=== PATIENT | female | born 1995 | race Caucasian/White ===

== ENCOUNTER 2022-06-23 11:26 | Inpatient (IN) ==
[2022-06-23] MEDS ORDERED: Azithromycin 500 MG in 0.9 % Sodium Chloride 250 ML IVPB PRN (11:43)
[2022-06-23] MEDS ORDERED: Famotidine 20 MG/2 ML VIAL IVP PRN (11:43)
[2022-06-23] MEDS ORDERED: Lidocaine 1% 20 ML MDV INFILT PRN (11:43)
[2022-06-23] MEDS ORDERED: *HR* Nalbuphine 10 MG/ML AMPUL IV PRN (11:43)
[2022-06-23] MEDS ORDERED: miSOPROStoL 25 MCG TABLET PO PRN (11:43)
[2022-06-23] MEDS ORDERED: Penicillin G Potassium 5,000,000 UNIT in 0.9 % Sodium Chloride Mini Bag 100 ML IVPB ONE (11:43)
[2022-06-23] MEDS ORDERED: Naloxone 0.4 MG/ML INJ IVP PRN ×2 (11:43→13:39)
[2022-06-23] MEDS ORDERED: Ondansetron 4 MG/2 ML VIAL IVP PRN ×2 (11:43→13:39)
[2022-06-23] MEDS ORDERED: Metoclopramide 10 MG/2 ML VIAL IVP PRN (11:43)
[2022-06-23] MEDS ORDERED: Ringers Solution, Lactated 1,000 ML IVC SCH (11:45)
[2022-06-23] MEDS ORDERED: Penicillin G Potassium 2,500,000 UNIT/105 ML MLS IVPB SCH (11:45)
[2022-06-23] MEDS ORDERED: D5% in 0.45% NACL 1,000 ML IVC SCH (12:00)
[2022-06-23 13:04] LABS: Basophils % 0.5 %; Eosinophils % 0.2 %; Hemoglobin 11.5 g/dL (11.5-15.4); Immature Granulocytes % 0.5 % (0-4); Lymphocytes # 0.9 K/mcL (0.6-4.6); Lymphocytes % 21.9 %; Mean Corpuscular HGB Conc 32.9 g/dL (31.6-35.5); Mean Corpuscular Hemoglobin 29.9 pg (28.0-33.3); Mean Corpuscular Volume 90.9 fL (83.0-100.0); Mean Platelet Volume 11.2 fL (9.4-12.4); Monocytes # 0.6 K/mcL (0.0-1.3); Monocytes % 13.8 %; Neutrophils # 2.7 K/mcL (1.6-8.9); Platelet Count 197 K/mcL (140-400); Red Blood Count 3.85 M/mcL (3.82-4.97); Red Cell Distribution Width 12.6 % (11.5-14.5); Segmented Neutrophils % 63.1 %; White Blood Count 4.3 K/mcL (4.3-11.1)
[2022-06-23] MEDS ORDERED: *HR* FentaNYL (PF) 100 MCG/2 ML VIAL EP ONE (13:39)
[2022-06-23] MEDS ORDERED: EPHEDrine 50 MG/ML VIAL IVP PRN (13:39)
[2022-06-23] MEDS ORDERED: Ropivacaine/PF 0.2% 20 ML VIAL EP ONE (13:39)
[2022-06-23 13:44] LABS: Amphetamine Screen,Urine Negative ng/mL (Cutoff=1000); Barbiturate Screen,Urine Negative ng/mL (Cutoff=200); Benzodiazepines Screen,Urine Negative ng/mL (Cutoff=200); Cannabinoid Screen,Urine Negative ng/mL (Cutoff = 50); Cocaine Screen,Urine Negative ng/mL (Cutoff= 300); Opiate Screen,Urine Negative ng/mL (Cutoff=300); Phencyclidine Screen,Urine Negative ng/mL (Cutoff=25)
[2022-06-23] MEDS ORDERED: Epidural Premix (fent/bupiv) 110 ML EP SCH (13:45)
[2022-06-23] MEDS ORDERED: miSOPROStoL 25 MCG TABLET VG PRN (13:59)
[2022-06-23] MEDS: Penicillin G Potassium 2,500,000 UNIT/105 ML MLS IVPB SCH ×2 (16:45→20:53)
[2022-06-23] MEDS ORDERED: miSOPROStoL 25 MCG TABLET VG SCH (22:15)
[2022-06-24] MEDS ORDERED: miSOPROStoL 25 MCG TABLET VG SCH
[2022-06-24] MEDS: Penicillin G Potassium 2,500,000 UNIT/105 ML MLS IVPB SCH (02:11)
[2022-06-24] MEDS ORDERED: *HR* FentaNYL (PF) 100 MCG/2 ML VIAL ONE (03:09)
[2022-06-24] MEDS ORDERED: Oxytocin 30 UNIT/503 ML BAG IVC ONE (04:58)
[2022-06-24] MEDS ORDERED: miSOPROStoL 100 MCG TABLET RC ONE (05:16)
[2022-06-24] MEDS ORDERED: *HR* Oxytocin 10 UNIT/ML VIAL IVC ONE (05:16)
[2022-06-24] MEDS ORDERED: Benzocaine/Menthol 56 GM AEROSOL SPRAY TP PRN (06:17)
[2022-06-24] MEDS ORDERED: Lanolin 7 G OINT...G. TP PRN (06:17)
[2022-06-24] MEDS ORDERED: Measles/Mumps/Rubella Vacc 0.5 ML VIAL SQ PRN (06:17)
[2022-06-24] MEDS ORDERED: Ondansetron ODT 4 MG TAB.RAPDIS SL PRN (06:17)
[2022-06-24] MEDS ORDERED: Rho Immune Globulin 1,500 UNIT SYRINGE IM PRN (06:17)
[2022-06-24] MEDS ORDERED: miSOPROStoL 100 MCG TABLET RC STA (06:20)
[2022-06-24] MEDS ORDERED: Acetaminophen 325 MG TABLET PO SCH (06:30)
[2022-06-24] MEDS ORDERED: Prenatal Vit/FA 1 EACH TABLET PO SCH ×2 (09:00→09:29)
[2022-06-24] MEDS ORDERED: Ibuprofen 600 MG TABLET PO SCH (09:17)
[2022-06-24] MEDS ORDERED: Benzocaine/Menthol 56 GM AEROSOL SPRAY TP ONE (18:10)
[2022-06-24] MEDS: Ibuprofen 600 MG TABLET PO PRN (22:08)
[2022-06-24] MEDS: Acetaminophen 325 MG TABLET PO PRN (22:08)
[2022-06-25 08:48] VITALS: BP 81/49; PULSE 54; TEMP 97.6; O2SAT 99
[2022-06-25] MEDS: Acetaminophen 325 MG TABLET PO PRN (09:10)
[2022-06-25] MEDS: Ibuprofen 600 MG TABLET PO PRN (09:10)
== END 2022-06-25 11:33 | disposition home or self-care (01) | DRG 807 ==
LOC: 1NENULAB 11:26 → 1NENUOBS 06-24 09:19
PROVIDERS: ADMIT Student in an Organized Health Care Education/Training Program; ATTEND Student in an Organized Health Care Education/Training Program